=== PATIENT | female | born 1945 ===

== ENCOUNTER 2019-10-08 06:40 | Day surgery (SDC) | payer OTHER | END 2019-10-08 16:20 | disposition home or self-care (01) | LOC: AMB-ENDOS 06:40 | PROVIDERS: ATTEND Colon & Rectal Surgery | DX: K57.32 Diverticulitis of large intestine without perforation or abscess without bleeding (principal); K64.1 Second degree hemorrhoids ==

== ENCOUNTER 2019-10-21 11:09 | Inpatient (IN) | payer OTHER ==
[~2019-10-21] VITALS: Ht 149.9 cm; Wt 58.1 kg
[2019-11-04] MEDS ORDERED: ENALAPRIL MALEA10 MG PO (15:14)
[2019-11-04] MEDS ORDERED: NEURONTIN800 MG PO (15:15)
== END 2019-11-12 17:24 | disposition home or self-care (01) | DRG 331 ==
LOC: SURG 11-09 05:30 → O/R 11-09 05:30 → RECOVERY 11-09 12:45 → SURG 11-09 13:20 → RECOVERY 11-09 18:00 → SURG 11-12 17:24
PROVIDERS: ADMIT Colon & Rectal Surgery; ATTEND Colon & Rectal Surgery
PROC: 0DBN4ZZ Excision of Sigmoid Colon, Percutaneous Endoscopic Approach (ICD-10-PCS; 2019-11-09)
PROC: 0DJD8ZZ Inspection of Lower Intestinal Tract, Via Natural or Artificial Opening Endoscopic (ICD-10-PCS; 2019-11-09)
PROC: 0DTP4ZZ Resection of Rectum, Percutaneous Endoscopic Approach (ICD-10-PCS; principal; 2019-11-09 18:00)
DX: K57.33 Diverticulitis of large intestine without perforation or abscess with bleeding (principal); I12.9 Hypertensive chronic kidney disease with stage 1 through stage 4 chronic kidney disease, or unspecified chronic kidney disease; N18.3 Chronic kidney disease, stage 3 (moderate)